=== PATIENT | male | born 1950 | race Caucasian/White ===

== ENCOUNTER 2017-05-30 10:58 | Inpatient (IN) | payer MEDICARE, BC ==
[2017-05-30] MEDS ORDERED: Sodium Chloride 0.9% 10 ML Syringe FLUSH PRN ×2 (11:03→14:25)
[2017-05-30] MEDS ORDERED: Midazolam 1 MG/ML 2 ML SDV IVPUSH ONE ×2 (11:19→12:21)
--- NOTE | 2017-05-30 11:34 | CR ---
Chest: Portable view of the chest was obtained. Moderate sized left sided pneumothorax is seen. Mild left basilar atelectasis is noted. Questionable nodule is noted within the left upper chest which can be reevaluated after lung is expanded. Right lung is clear. Heart size is normal. Tortuous thoracic aorta is seen. Impression: 1. Moderate sized left-sided pneumothorax. 2. Questionable nodule within the left upper lung. This can be further evaluated once pneumothorax is evacuated. 3. Other incidental findings. Diagnostic code #5
[2017-05-30] MEDS ORDERED: Midazolam 1 MG/ML 2 ML SDV ONE (12:00)
[2017-05-30] MEDS ORDERED: fentaNYL 100 MCG/2 ML SDV ONE (12:01)
[2017-05-30] MEDS ORDERED: fentaNYL 100 MCG/2 ML SDV IVPUSH ONE (12:20)
[2017-05-30] MEDS ORDERED: Lidocaine 1% 50 ML MDV ONE (12:30)
--- NOTE | 2017-05-30 12:37 | EDM.PDOC ---
ED HPI GENERAL MEDICAL PROBLEM - General Chief Complaint: Respiratory Problem Stated Complaint: [facility] Time Seen by Provider: 05/30/17 11:02 Source of Information: Reports: Patient, EMS History Limitations: Reports: No Limitations - History of Present Illness INITIAL COMMENTS - FREE TEXT/NARRATIVE: The patient presents with a 25% pneumothorax to the left chest. The patient has a history of asthma and his manager customs Dr Buchanan found a spot on his lung. A PET scan was done and the spot lit up. He had a biopsy done on Friday. This was done at [facility] in [place] and he had some pain after and they did an x-ray that did not show a pneumothorax and he was toradol. He got better and went home. He developed shortness of breath over the past couple days and he he had some chest pain. He went to the clinic in [place] and they did a chest x-ray and he had a >25% pneumo to the left lung. He was sent here by ambulance. He has shortness of breath and chest pain here. He is tachypnic. Onset: Gradual Duration: Day(s): Location: Reports: Chest Quality: Reports: Sharp Severity: Moderate Improves with: Reports: None Worsens with: Reports: Movement Context: Reports: Other (Post biopsy) Associated Symptoms: Reports: Chest Pain, Shortness of Breath. Denies: Cough, Fever/Chills, Nausea/Vomiting - Related Data Allergies Allergy/AdvReac Type Severity Reaction Status Date / Time ciprofloxacin [From Cipro] Allergy Hives Verified 05/30/17 11:10 Home Meds: Home Meds Albuterol [Proair HFA] 2 puff INH Q4HR PRN 03/24/14 [History] Albuterol [Ventolin HFA] 1 puff INH QID PRN 03/24/14 [History] Fexofenadine [Elodia] 180 mg PO DAILY 03/25/14 [History] Hydrocodone/Acetaminophen [Hydrocodone-Acetaminophen 5-325] 1 each PO Q4H PRN [History] predniSONE [Prednisone] 20 mg PO ASDIRECTED 03/25/14 [History] Aspirin 81 mg PO DAILY 05/30/17 [History] Bifidobacterium Infantis [Align] 4 mg PO DAILY PRN 05/30/17 [History] Budesonide [Pulmicort] 0.5 mg IH BID 05/30/17 [History] Budesonide/Formoterol [Symbicort 160-4.5 MCG] 2 puff INH BID 05/30/17 [History] Calcium Carbonate [Calcium] 1 tab PO DAILY 05/30/17 [History] Guaifenesin/Pseudoephedrne HCl [Mucinex D ER Tablet] 1 each PO DAILY 05/30/17 [ History] Methylcellulose (with Sugar) [Citrucel] 1 dose PO ASDIRECTED PRN 05/30/17 [ History] Omeprazole 40 mg PO DAILY PRN 05/30/17 [History] Ranitidine [Zantac] 300 mg PO BID 05/30/17 [History] Zolpidem [Ambien] 10 mg PO BEDTIME 05/30/17 [History] Past Medical History HEENT History: Reports: Cataract, Impaired Vision Respiratory History: Reports: Asthma, PE, Other (See Below) Other Respiratory History: PET scan positive for cancer, collapsed lung 05/2017 Gastrointestinal History: Reports: GERD Genitourinary History: Reports: Prostate Disorder, Renal Disease, Other (See Below) Other Genitourinary History: stents placed to kidney ureter Endocrine/Metabolic History: Reports: Other (See Below) Other Endocrine/Metabolic History: lymph node removal with prostate cancer Hematologic History: Reports: Anemia Oncologic (Cancer) History: Reports: Prostate, Other (See Below) Other Oncologic History: r/o currently for lung cancer - Past Surgical History HEENT Surgical History: Reports: Tonsillectomy Respiratory Surgical History: Reports: Lung Biopsies GI Surgical History: Reports: Other (See Below) Other GI Surgeries/Procedures: bowel resection Male Surgical History: Reports: Prostate Biopsy Musculoskeletal Surgical History: Reports: Other (See Below) Other Musculoskeletal Surgeries/Procedures:: broken foot/ankle Social & Family History - Family History Family Medical History: Noncontributory - Tobacco Use Smoking Status *Q: Former Smoker Years of Tobacco use: 30 Used Tobacco, but Quit: No Second Hand Smoke Exposure: No - Caffeine Use Caffeine Use: Reports: Coffee - Alcohol Use Days Per Week of Alcohol Use: 0 - Recreational Drug Use Recreational Drug Use: No ED ROS GENERAL - Review of Systems Review Of Systems: See Below Constitutional: Reports: No Symptoms HEENT: Reports: No Symptoms Respiratory: Reports: Shortness of Breath Cardiovascular: Reports: Chest Pain Endocrine: Reports: No Symptoms GI/Abdominal: Reports: No Symptoms : Reports: No Symptoms Musculoskeletal: Reports: No Symptoms Skin: Reports: No Symptoms ED EXAM, GENERAL - Physical Exam Exam: See Below Exam Limited By: No Limitations General Appearance: Alert, No Apparent Distress Ears: Normal External Exam Nose: Normal Inspection Head: Atraumatic, Normocephalic Neck: Normal Inspection Respiratory/Chest: Respiratory Distress (Mild), Decreased Breath Sounds (on the left) Cardiovascular: Regular Rate, Rhythm, No Edema, No Murmur GI/Abdominal: Soft, Non-Tender, No Organomegaly, No Mass Rectal (Males) Exam: Normal Exam Back Exam: Normal Inspection Extremities: Normal Inspection Neurological: Alert, Oriented, No Motor/Sensory Deficits ED RESPIRATORY PROCEDURES - Chest Tube Insertion Chest Tube Location: Left Site: Mid Axillary Line, Intercostal Space: Tube Size: 20Fr Skin Prep: CDC Guidelines Followed, Chlorhexidine Local Anesthesia - Lidocaine (Xylocaine): 1% Plain Local Anesthetic Volume: 5cc Gonsalez of Air Towner: Yes Number of Attempts: 1 Tube Sutured to Skin: Yes Post procedure tube position confirmed by: by CXR, by Provider Tube Connected to Suction: Yes Course - Vital Signs Last Recorded V/S: Last Vital Signs Temp 98.4 F 05/30/17 11:04 Pulse 74 05/30/17 11:04 Resp 28 H 05/30/17 11:04 BP 131/82 05/30/17 11:04 Pulse Ox 98 05/30/17 11:04 - Orders/Labs/Meds Orders: Active Orders 24 hr Category Date Time Status Cardiac Monitoring [RC] . DIRECTED Care 05/30/17 11:03 Active Oxygen Therapy [RC] PRN Care 05/30/17 11:03 Active Peripheral IV Care [RC] . DIRECTED Care 05/30/17 11:03 Active Chest 1V Frontal [CR] Stat Exams 05/30/17 12:05 Taken Sodium Chloride 0.9% [Saline Flush] Med 05/30/17 11:03 Active 10 ml FLUSH ASDIRECTED PRN Peripheral IV Insertion Adult [OM.PC] Stat Oth 05/30/17 11:03 Ordered Medication Orders Sodium Chloride (Saline Flush) 10 ml FLUSH ASDIRECTED PRN PRN Reason: Keep Vein Open Last Admin: 05/30/17 11:41 Dose: 10 ml Labs: Laboratory Tests 05/30/17 05/30/17 Range/Units 11:15 11:15 WBC 6.88 (4.23-9.07) K/mm3 RBC 4.60 L (4.63-6.08) M/mm3 Hgb 13.6 L (13.7-17.5) gm/L Hct 42.1 (40.1-51.0) % MCV 91.5 (79.0-92.2) fl MCH 29.6 (25.7-32.2) pg MCHC 32.3 (32.2-35.5) g/dl RDW Std Deviation 47.5 H (35.1-43.9) fL Plt Count 237 (163-337) K/mm3 MPV 10.3 (9.4-12.3) fl Neut % (Auto) 61.7 (34.0-67.9) % Lymph % (Auto) 14.2 L (21.8-53.1) % [place] % (Auto) 7.3 (5.3-12.2) % Eos % (Auto) 16.3 H (0.8-7.0) Baso % (Auto) 0.4 (0.1-1.2) % Neut # (Auto) 4.24 (1.78-5.38) K/mm3 Lymph # (Auto) 0.98 L (1.32-3.57) K/mm3 [place] # (Auto) 0.50 (0.30-0.82) K/mm3 Eos # (Auto) 1.12 H (0.04-0.54) K/mm3 Baso # (Auto) 0.03 (0.01-0.08) K/mm3 Manual Slide Review Abnormal smear Sodium 140 (136-145) mEq/L Potassium 4.3 (3.5-5.1) mEq/L Chloride 105 (98-107) mEq/L Carbon Dioxide 29 (21-32) mEq/L Anion Gap 10.3 (5-15) BUN 13 (7-18) mg/dL Creatinine 1.0 (0.7-1.3) mg/dL Est Cr Clr Drug Dosing 60.84 mL/min Estimated GFR (MDRD) > 60 (>60) mL/min BUN/Creatinine Ratio 13.0 L (14-18) Glucose 94 (80-115) mg/dL Calcium 9.3 (8.5-10.1) mg/dL Total Bilirubin 0.4 (0.2-1.0) mg/dL AST 19 (15-37) U/L ALT 20 (16-63) U/L Alkaline Phosphatase 107 (46-116) U/L Total Protein 7.7 (6.4-8.2) g/dl Albumin 3.9 (3.4-5.0) g/dl Globulin 3.8 gm/dL Albumin/Globulin Ratio 1.0 (1-2) Meds: Medications Generic Name Dose Route Start Last Admin Trade Name Freq PRN Reason Stop Dose Admin Sodium Chloride 10 ml 05/30/17 11:03 05/30/17 11:41 Saline Flush FLUSH 10 ml ASDIRECTED PRN Administration Keep Vein Open Discontinued Medications Generic Name Dose Route Start Last Admin Trade Name Freq PRN Reason Stop Dose Admin Fentanyl Confirm 05/30/17 12:01 05/30/17 12:26 Sublimaze Administered 05/30/17 12:02 Not Given Dose 100 mcg .ROUTE .STK-MED ONE Fentanyl 50 mcg 05/30/17 12:20 05/30/17 12:24 Sublimaze IVPUSH 05/30/17 12:21 50 mcg ONETIME ONE Administration Midazolam HCl 2 mg 05/30/17 11:19 05/30/17 11:41 Versed 1 Mg/Ml IVPUSH 05/30/17 11:20 2 mg ONETIME ONE Administration Midazolam HCl Confirm 05/30/17 12:00 05/30/17 12:27 Versed 1 Mg/Ml Administered 05/30/17 12:01 Not Given Dose 2 mg .ROUTE .STK-MED ONE Midazolam HCl 2 mg 05/30/17 12:21 05/30/17 12:26 Versed 1 Mg/Ml IVPUSH 05/30/17 12:22 2 mg ONETIME ONE Administration - Re-Assessments/Exams Free Text/Narrative Re-Assessment/Exam: 05/30/17 12:43 I ordered oxygen, IV saline lock, CXR, labs and versed 2mg IV. I called Dr Ross and he recommended a 20 [place] tube. I put that size tube in and had a large gonsalez of air. The tube went to the lower part of the lung and not the the upper part where I wanted it but it is doing the job. Dr Ross accepted the patient. Departure - Departure Time of Disposition: 13:00 Disposition: Admitted As Inpatient 67 Condition: Good Clinical Impression: Pneumothorax after biopsy - Discharge Information Forms: ED Department Discharge - My Orders Last 24 Hours: My Active Orders 05/30/17 11:03 Cardiac Monitoring [RC] . DIRECTED Oxygen Therapy [RC] PRN Peripheral IV Care [RC] . DIRECTED Sodium Chloride 0.9% [Saline Flush] 10 ml FLUSH ASDIRECTED PRN Peripheral IV Insertion Adult [OM.PC] Stat 05/30/17 12:05 Chest 1V Frontal [CR] Stat - Assessment/Plan Last 24 Hours: My Active Orders 05/30/17 11:03 Cardiac Monitoring [RC] . DIRECTED Oxygen Therapy [RC] PRN Peripheral IV Care [RC] . DIRECTED Sodium Chloride 0.9% [Saline Flush] 10 ml FLUSH ASDIRECTED PRN Peripheral IV Insertion Adult [OM.PC] Stat 05/30/17 12:05 Chest 1V Frontal [CR] Stat
--- NOTE | 2017-05-30 12:47 | CR ---
Chest: Portable view of the chest was obtained. Comparison: Previous chest x-ray performed on the same day (10:58 AM). Left basilar chest tube is seen. Minimal apical pneumothorax remains within the left lung apex but pneumothorax has otherwise been evacuated. Slight areas of atelectasis are felt to be present within the left chest. No discrete nodule identified as suggested on prior chest x-ray. Right lung is clear. Small to moderate-sized hiatal hernia is seen. Tortuous thoracic aorta is noted. Heart size is not enlarged. Small amount of air is noted within the left chest wall. Impression: 1. Left basilar chest tube. Minimal apical pneumothorax remains on the left side. 2. Other incidental findings. Diagnostic code #2
[2017-05-30] MEDS ORDERED: Acetaminophen/oxyCODONE 325-5 MG Tab PO PRN (14:01)
[2017-05-30] MEDS ORDERED: Non-Formulary Medication 1 Each (Albuterol 1 PUFF) INH PRN (14:26)
[2017-05-30] MEDS ORDERED: Bifidobacterium Infantis [Align] 4 MG PO PRN (14:26)
--- NOTE | 2017-05-30 14:35 | PCM.HP ---
H&P History of Present Illness - General Date of Service: 05/30/17 Admit Problem/Dx: Admission Diagnosis/Problem Admission Diagnosis/Problem Pneumothorax Source of Information: Patient, Provider History Limitations: Reports: No Limitations - History of Present Illness Initial Comments - Free Text/Narative: 67-year-old patient with COPD underwent a left lung imaging guided biopsy for a pulmonary nodule about 48 hours ago. After the lung biopsy he noticed progressive shortness of breath. Ultimately he went to his local emergency room today where a chest x-ray was performed and was remarkable for a left-sided pneumothorax of about 25%. He was accepted in transfer from the ED to our ED where he was seen by staff. A chest tube was placed by ED staff in the left hemithorax. There was a gonsalez of air upon entry into the chest. The patient's symptoms of shortness of breath were improved. A basilar chest tube was inserted. He was placed on suction and transferred to the floor for my chest tube management. Currently he complains of left chest tube entry site pain. - Related Data Allergies/Adverse Reactions: Allergies Allergy/AdvReac Type Severity Reaction Status Date / Time ciprofloxacin [From Cipro] Allergy Hives Verified 05/30/17 11:10 Home Medications: Home Meds Albuterol [Proair HFA] 2 puff INH Q4HR PRN 03/24/14 [History] Albuterol [Ventolin HFA] 1 puff INH QID PRN 03/24/14 [History] Fexofenadine [Elodia] 180 mg PO DAILY 03/25/14 [History] Hydrocodone/Acetaminophen [Hydrocodone-Acetaminophen 5-325] 1 each PO Q4H PRN [History] predniSONE [Prednisone] 20 mg PO ASDIRECTED 03/25/14 [History] Aspirin 81 mg PO DAILY 05/30/17 [History] Bifidobacterium Infantis [Align] 4 mg PO DAILY PRN 05/30/17 [History] Budesonide [Pulmicort] 0.5 mg IH BID 05/30/17 [History] Budesonide/Formoterol [Symbicort 160-4.5 MCG] 2 puff INH BID 05/30/17 [History] Calcium Carbonate [Calcium] 1 tab PO DAILY 05/30/17 [History] Guaifenesin/Pseudoephedrne HCl [Mucinex D ER Tablet] 1 each PO DAILY 05/30/17 [ History] Methylcellulose (with Sugar) [Citrucel] 1 dose PO ASDIRECTED PRN 05/30/17 [ History] Omeprazole 40 mg PO DAILY PRN 05/30/17 [History] Ranitidine [Zantac] 300 mg PO BID 05/30/17 [History] Zolpidem [Ambien] 10 mg PO BEDTIME 05/30/17 [History] Past Medical History HEENT History: Reports: Cataract, Impaired Vision Respiratory History: Reports: Asthma, PE, Other (See Below) Other Respiratory History: PET scan positive for cancer, collapsed lung 05/2017 Gastrointestinal History: Reports: GERD Genitourinary History: Reports: Prostate Disorder, Renal Disease, Other (See Below) Other Genitourinary History: stents placed to kidney ureter Endocrine/Metabolic History: Reports: Other (See Below) Other Endocrine/Metabolic History: lymph node removal with prostate cancer Hematologic History: Reports: Anemia Oncologic (Cancer) History: Reports: Prostate, Other (See Below) Other Oncologic History: r/o currently for lung cancer - Past Surgical History HEENT Surgical History: Reports: Tonsillectomy Respiratory Surgical History: Reports: Lung Biopsies GI Surgical History: Reports: Other (See Below) Other GI Surgeries/Procedures: bowel resection Male Surgical History: Reports: Prostate Biopsy Musculoskeletal Surgical History: Reports: Other (See Below) Other Musculoskeletal Surgeries/Procedures:: broken foot/ankle Social & Family History - Family History Family Medical History: Noncontributory - Tobacco Use Smoking Status *Q: Former Smoker Years of Tobacco use: 30 Used Tobacco, but Quit: No Second Hand Smoke Exposure: No - Caffeine Use Caffeine Use: Reports: Coffee - Alcohol Use Days Per Week of Alcohol Use: 0 - Recreational Drug Use Recreational Drug Use: No H&P Review of Systems - Review of Systems: Review Of Systems: ROS reveals no pertinent complaints other than HPI. Exam - Exam Exam: See Below - Vital Signs Vital Signs: Last Vital Signs Temp 36.9 C 05/30/17 11:04 Pulse 74 05/30/17 11:04 Resp 28 H 05/30/17 11:04 BP 131/82 05/30/17 11:04 Pulse Ox 98 05/30/17 11:04 Weight: 64.864 kg - Exam Quality Assessment: Supplemental Oxygen General: Alert, Oriented, Other (Anxious) Neck: Supple Lungs: Other (Increased AP diameter. Microfoam tape securing the chest tube in place. The dressing is dry and intact.) Cardiovascular: Regular Rate, Regular Rhythm GI/Abdominal Exam: Soft, Non-Tender (Male) Exam: Deferred Rectal (Males) Exam: Deferred Back Exam: Full Range of Motion Extremities: Normal Inspection Skin: Warm Neuro Extensive - Mental Status: Alert, Normal Mood/Affect, Normal Cognition Psychiatric: Alert, Normal Affect - Patient Data Result Diagrams: 05/30/17 11:15 05/30/17 11:15 *Q Meaningful Use (ADM) - VTE *Q VTE Criteria *Q: - Stroke *Q Stroke Criteria *Q: - AMI *Q AMI Criteria *Q: - Problem List (1) Pneumothorax after biopsy SNOMED Code(s): 21899148, 56595186 ICD Code: J95.811 - POSTPROCEDURAL PNEUMOTHORAX Status: Resolved Priority : Medium Current Visit: Yes Problem List Initiated/Reviewed/Updated: Yes Orders Last 24hrs: Active Orders 24 hr Category Date Time Status Patient Status [ADT] Routine ADT 05/30/17 14:24 Active Bedrest Bathroom Privileges [RC] ASDIRECTED Care 05/30/17 14:16 Active Regular Diet [DIET] Diet 05/30/17 Dinner Active Chest 1V Frontal [CR] Routine Exams 05/31/17 07:00 Ordered Acetaminophen/HYDROcodone [[place] 325-5 MG] Med 05/30/17 14:26 Ordered 1 each PO Q4H PRN Acetaminophen/oxyCODONE [Percocet 325-5 MG] Med 05/30/17 14:01 Active 1 - 2 tab PO Q6H PRN Albuterol Med 05/30/17 14:26 Ordered 1 puff INH QID PRN Albuterol [Proventil HFA] Med 05/30/17 14:26 Ordered 2 puff INH Q4HR PRN Aspirin Med 05/31/17 09:00 Ordered 81 mg PO DAILY Bifidobacterium Infantis [Align] Med 05/30/17 14:26 Ordered 4 mg PO DAILY PRN Budesonide [Pulmicort] Med 05/30/17 21:00 Ordered 0.5 mg NEB BID Budesonide/Formoterol [Symbicort 160-4.5 MCG] Med 05/30/17 21:00 Ordered 2 puff INH BID Calcium Carbonate [Calcium] Med 05/31/17 09:00 Ordered 1 tab PO DAILY Fexofenadine Med 05/31/17 09:00 Ordered 180 mg PO DAILY Guaifenesin/Pseudoephedrne HCl Med 05/31/17 09:00 Ordered 1 each PO DAILY Ketorolac [Toradol] Med 05/30/17 14:25 Ordered 30 mg IVPUSH Q6H PRN Omeprazole Med 05/30/17 14:26 Ordered 40 mg PO DAILY PRN Sodium Chloride 0.9% [Saline Flush] Med 05/30/17 14:25 Ordered 10 ml FLUSH ASDIRECTED PRN Zolpidem [Ambien] Med 05/30/17 21:00 Ordered 10 mg PO BEDTIME Convert IV to Saline Lock [OM.PC] Routine Oth 05/30/17 14:25 Ordered Resuscitation Status Routine Resus Stat 05/30/17 14:17 Ordered Medication Orders Oxycodone/Acetaminophen (Percocet 325-5 Mg) 1 - 2 tab PO Q6H PRN PRN Reason: Pain (moderate 4-6) Last Admin: 05/30/17 14:14 Dose: 2 tab Sodium Chloride (Saline Flush) 10 ml FLUSH ASDIRECTED PRN PRN Reason: Keep Vein Open Last Admin: 05/30/17 11:41 Dose: 10 ml Assessment/Plan Comment:: imp: Left-sided iatrogenic pneumothorax status post radiologic biopsy of a suspicious pulmonary nodule. Status post left ED tube thoracostomy with re expansion of the left lung. The waterseal unit has no air leak but there is significant respiratory variation. plan: 20 cm of suction to keep the lung expanded. Serial chest x-rays. COPD and pain management.
[2017-05-30] MEDS: Ketorolac 30 MG/ML SDV IVPUSH PRN ×2 (15:13→20:49)
[2017-05-30] MEDS: Pantoprazole 40 MG Tab.CR PO PRN (15:15)
[2017-05-30] MEDS: Zolpidem 10 MG Tab PO SCH (20:49)
[2017-05-30] MEDS: Benzonatate 100 MG Cap PO PRN (22:04)
[2017-05-30] MEDS: Acetaminophen/HYDROcodone 325-5 MG Tab PO PRN (22:09)
[2017-05-30] MEDS: Budesonide 0.5 MG/2 ML Neb Susp NEB SCH (22:50)
[2017-05-30] MEDS: Formoterol/Mometasone 200-5 MCG 8.8 GM Inhaler IH SCH (22:50)
[2017-05-30] MEDS: Albuterol 6.7 GM Inhaler INH PRN (22:54)
[2017-05-31] MEDS: Ketorolac 30 MG/ML SDV IVPUSH PRN ×2 (05:52→21:39)
[2017-05-31] MEDS: Benzonatate 100 MG Cap PO PRN ×2 (05:52→17:51)
[2017-05-31] MEDS: Budesonide 0.5 MG/2 ML Neb Susp NEB SCH ×2 (08:40→20:01)
[2017-05-31] MEDS: Formoterol/Mometasone 200-5 MCG 8.8 GM Inhaler IH SCH ×2 (08:40→20:01)
[2017-05-31] MEDS: Albuterol 6.7 GM Inhaler INH PRN ×2 (08:40→20:01)
[2017-05-31] MEDS: Aspirin 81 MG Tab.Chew PO SCH (08:49)
[2017-05-31] MEDS: Loratadine 10 MG Tab PO SCH (08:51)
[2017-05-31] MEDS: Acetaminophen/HYDROcodone 325-5 MG Tab PO PRN ×2 (08:52→17:50)
[2017-05-31] MEDS: Pseudoephedrine 30 MG Tab PO SCH (08:52)
[2017-05-31] MEDS: guaiFENesin 600 MG Tab.ER PO SCH (08:52)
[2017-05-31] MEDS ORDERED: Calcium Carbonate 600 MG Tab PO SCH (09:00)
--- NOTE | 2017-05-31 09:21 | PCM.PN ---
- General Info Date of Service: 05/31/17 Functional Status: Reports: Pain Controlled - Review of Systems Pulmonary: Reports: Cough (Patient has a known chronic cough. He takes Tessalon pearls at home. This was given here and relieved his cough area) - Patient Data Vitals - Most Recent: Last Vital Signs Temp 36.3 C 05/31/17 03:00 Pulse 67 05/31/17 03:00 Resp 18 05/31/17 03:00 BP 120/76 05/31/17 03:00 Pulse Ox 97 05/31/17 08:40 Weight - Most Recent: 66.134 kg I&O - Last 24 Hours: Intake & Output 05/30/17 05/31/17 05/31/17 22:59 06:59 14:59 Intake Total 760 1200 Output Total 100 500 Balance 660 700 Med Orders - Current: Current Medications Hydrocodone Bitart/Acetaminophen ([place] 325-5 Mg) 1 tab PO Q4H PRN PRN Reason: Pain Last Admin: 05/31/17 08:52 Dose: 1 tab Albuterol (Proventil Hfa) 0 gm INH Q4H PRN PRN Reason: Shortness of Breath Last Admin: 05/31/17 08:40 Dose: 2 puff Aspirin (Aspirin) 81 mg PO DAILY [facility] Last Admin: 05/31/17 08:49 Dose: 81 mg Benzonatate (Tessalon Perles) 100 mg PO TID PRN PRN Reason: COUGH Last Admin: 05/31/17 05:52 Dose: 100 mg Budesonide (Pulmicort) 0.5 mg NEB BID [facility] Last Admin: 05/31/17 08:40 Dose: 0.5 mg Calcium Carbonate/Glycine (Calcium Carbonate) 1 mg PO DAILY [facility] Last Admin: 05/31/17 08:50 Dose: 600 mg Guaifenesin (Mucinex) 600 mg PO DAILY [facility] Last Admin: 05/31/17 08:52 Dose: 600 mg Ketorolac Tromethamine (Toradol) 30 mg IVPUSH Q6H PRN PRN Reason: Pain Last Admin: 05/31/17 05:52 Dose: 30 mg Loratadine (Claritin) 10 mg PO DAILY [facility] Last Admin: 05/31/17 08:51 Dose: 10 mg Mometasone Furoate/Formoterol Fumar (Dulera 200-5 Mcg) 0 puff IH BID [facility] Last Admin: 05/31/17 08:40 Dose: 2 puff Oxycodone/Acetaminophen (Percocet 325-5 Mg) 1 - 2 tab PO Q6H PRN PRN Reason: Pain (moderate 4-6) Last Admin: 05/30/17 14:14 Dose: 2 tab Pantoprazole Sodium (Protonix) 40 mg PO DAILY PRN PRN Reason: Heartburn Last Admin: 05/30/17 15:15 Dose: 40 mg Bifidobacterium Infantis [Align] 4 Mg 0 each PO DAILY PRN PRN Reason: GI upset Pseudoephedrine HCl (Sudogest) 120 mg PO DAILY [facility] Last Admin: 05/31/17 08:52 Dose: 120 mg Sodium Chloride (Saline Flush) 10 ml FLUSH ASDIRECTED PRN PRN Reason: Keep Vein Open Last Admin: 05/30/17 11:41 Dose: 10 ml Sodium Chloride (Saline Flush) 10 ml FLUSH ASDIRECTED PRN PRN Reason: Keep Vein Open Zolpidem Tartrate (Ambien) 10 mg PO BEDTIME [facility] Last Admin: 05/30/17 20:49 Dose: 10 mg Discontinued Medications Fentanyl (Sublimaze) Confirm Administered Dose 100 mcg .ROUTE .STK-MED ONE Stop: 05/30/17 12:02 Last Admin: 05/30/17 12:26 Dose: Not Given Fentanyl (Sublimaze) 50 mcg IVPUSH ONETIME ONE Stop: 05/30/17 12:21 Last Admin: 05/30/17 12:24 Dose: 50 mcg Midazolam HCl (Versed 1 Mg/Ml) 2 mg IVPUSH ONETIME ONE Stop: 05/30/17 11:20 Last Admin: 05/30/17 11:41 Dose: 2 mg Midazolam HCl (Versed 1 Mg/Ml) Confirm Administered Dose 2 mg .ROUTE .STK-MED ONE Stop: 05/30/17 12:01 Last Admin: 05/30/17 12:27 Dose: Not Given Midazolam HCl (Versed 1 Mg/Ml) 2 mg IVPUSH ONETIME ONE Stop: 05/30/17 12:22 Last Admin: 05/30/17 12:26 Dose: 2 mg Non-Formulary Medication (Albuterol) 1 puff INH QID PRN PRN Reason: Shortness of Breath - Exam Lungs: Normal Respiratory Effort, Other (Some respiratory variation in the collection unit. No air leak through the water seal.) - Problem List & Annotations (1) Pneumothorax after biopsy SNOMED Code(s): 98191932, 92743215 Code(s): J95.811 - POSTPROCEDURAL PNEUMOTHORAX Status: Resolved Priority : Medium Current Visit: Yes - Problem List Review Problem List Initiated/Reviewed/Updated: Yes - My Orders Last 24 Hours: My Active Orders 05/30/17 13:55 Chest Tube Management [RC] ASDIRECTED 05/30/17 14:25 Ketorolac [Toradol] 30 mg IVPUSH Q6H PRN Sodium Chloride 0.9% [Saline Flush] 10 ml FLUSH ASDIRECTED PRN Convert IV to Saline Lock [OM.PC] Routine 05/30/17 14:26 Acetaminophen/HYDROcodone [[place] 325-5 MG] 1 tab PO Q4H PRN Albuterol [Proventil HFA] 0 gm INH Q4H PRN Pantoprazole [ProTONIX] 40 mg PO DAILY PRN Patient's Own Medication [Ptom] 0 each PO DAILY PRN 05/30/17 17:05 Antiembolic Devices [RC] PER UNIT ROUTINE Antiembolic Hose [OM.PC] Routine 05/30/17 20:40 Benzonatate [Tessalon Perles] 100 mg PO TID PRN 05/30/17 21:00 Budesonide [Pulmicort] 0.5 mg NEB BID Mometasone/Formoterol [Dulera 200-5 MCG] 0 puff IH BID Zolpidem [Ambien] 10 mg PO BEDTIME 05/31/17 07:00 Chest 1V Frontal [CR] Routine 05/31/17 09:00 Aspirin 81 mg PO DAILY Calcium Carbonate 1 mg PO DAILY Loratadine [Claritin] 10 mg PO DAILY Pseudoephedrine [Sudogest] 120 mg PO DAILY guaiFENesin [Mucinex] 600 mg PO DAILY Stable p.m. - Plan Plan:: We'll continue suction for for 48 hours. Waterseal tomorrow.
[2017-05-31] MEDS: Zolpidem 10 MG Tab PO SCH (21:39)
[2017-05-31] MEDS ORDERED: Magnesium Hydroxide 400 MG/5 ML Susp 30 ML Cup PO PRN (21:51)
[2017-06-01] MEDS: Ketorolac 30 MG/ML SDV IVPUSH PRN ×2 (06:17→20:06)
--- NOTE | 2017-06-01 08:24 | PCM.PN ---
- General Info Date of Service: 06/01/17 Functional Status: Reports: Pain Controlled, Tolerating Diet, Ambulating, Urinating - Review of Systems Pulmonary: Reports: No Symptoms - Patient Data Vitals - Most Recent: Last Vital Signs Temp 36.6 C 06/01/17 05:07 Pulse 74 06/01/17 05:07 Resp 18 06/01/17 05:07 BP 128/75 06/01/17 05:07 Pulse Ox 93 L 06/01/17 05:07 Weight - Most Recent: 67.222 kg I&O - Last 24 Hours: Intake & Output 05/31/17 06/01/17 06/01/17 22:59 06:59 14:59 Intake Total 1910 800 Output Total 231 1200 Balance 1679 -400 Med Orders - Current: Current Medications Hydrocodone Bitart/Acetaminophen ([place] 325-5 Mg) 1 tab PO Q4H PRN PRN Reason: Pain Last Admin: 05/31/17 17:50 Dose: 1 tab Albuterol (Proventil Hfa) 0 gm INH Q4H PRN PRN Reason: Shortness of Breath Last Admin: 05/31/17 20:01 Dose: 1 puff Aspirin (Aspirin) 81 mg PO DAILY [facility] Last Admin: 05/31/17 08:49 Dose: 81 mg Benzonatate (Tessalon Perles) 100 mg PO TID PRN PRN Reason: COUGH Last Admin: 05/31/17 17:51 Dose: 100 mg Budesonide (Pulmicort) 0.5 mg NEB BID [facility] Last Admin: 05/31/17 20:01 Dose: 0.5 mg Calcium Carbonate/Glycine (Calcium Carbonate) 600 mg PO DAILY [facility] Guaifenesin (Mucinex) 600 mg PO DAILY [facility] Last Admin: 05/31/17 08:52 Dose: 600 mg Ketorolac Tromethamine (Toradol) 30 mg IVPUSH Q6H PRN PRN Reason: Pain Last Admin: 06/01/17 06:17 Dose: 30 mg Loratadine (Claritin) 10 mg PO DAILY [facility] Last Admin: 05/31/17 08:51 Dose: 10 mg Magnesium Hydroxide (Milk Of Magnesia) 30 ml PO DAILY PRN PRN Reason: Constipation Last Admin: 05/31/17 22:05 Dose: 30 ml Mometasone Furoate/Formoterol Fumar (Dulera 200-5 Mcg) 0 puff IH BID [facility] Last Admin: 05/31/17 20:01 Dose: 1 puff Pantoprazole Sodium (Protonix) 40 mg PO DAILY PRN PRN Reason: Heartburn Last Admin: 05/30/17 15:15 Dose: 40 mg Bifidobacterium Infantis [Align] 4 Mg 0 each PO DAILY PRN PRN Reason: GI upset Pseudoephedrine HCl (Sudogest) 120 mg PO DAILY [facility] Last Admin: 05/31/17 08:52 Dose: 120 mg Sodium Chloride (Saline Flush) 10 ml FLUSH ASDIRECTED PRN PRN Reason: Keep Vein Open Last Admin: 05/30/17 11:41 Dose: 10 ml Sodium Chloride (Saline Flush) 10 ml FLUSH ASDIRECTED PRN PRN Reason: Keep Vein Open Zolpidem Tartrate (Ambien) 10 mg PO BEDTIME [facility] Last Admin: 05/31/17 21:39 Dose: 10 mg Discontinued Medications Calcium Carbonate/Glycine (Calcium Carbonate) 1 mg PO DAILY [facility] Last Admin: 05/31/17 08:50 Dose: 600 mg Fentanyl (Sublimaze) Confirm Administered Dose 100 mcg .ROUTE .STK-MED ONE Stop: 05/30/17 12:02 Last Admin: 05/30/17 12:26 Dose: Not Given Fentanyl (Sublimaze) 50 mcg IVPUSH ONETIME ONE Stop: 05/30/17 12:21 Last Admin: 05/30/17 12:24 Dose: 50 mcg Midazolam HCl (Versed 1 Mg/Ml) 2 mg IVPUSH ONETIME ONE Stop: 05/30/17 11:20 Last Admin: 05/30/17 11:41 Dose: 2 mg Midazolam HCl (Versed 1 Mg/Ml) Confirm Administered Dose 2 mg .ROUTE .STK-MED ONE Stop: 05/30/17 12:01 Last Admin: 05/30/17 12:27 Dose: Not Given Midazolam HCl (Versed 1 Mg/Ml) 2 mg IVPUSH ONETIME ONE Stop: 05/30/17 12:22 Last Admin: 05/30/17 12:26 Dose: 2 mg Non-Formulary Medication (Albuterol) 1 puff INH QID PRN PRN Reason: Shortness of Breath Oxycodone/Acetaminophen (Percocet 325-5 Mg) 1 - 2 tab PO Q6H PRN PRN Reason: Pain (moderate 4-6) Last Admin: 05/30/17 14:14 Dose: 2 tab - Exam Lungs: Other (Subcutaneous air) - Problem List & Annotations (1) Pneumothorax after biopsy SNOMED Code(s): 20375731, 88205055 Code(s): J95.811 - POSTPROCEDURAL PNEUMOTHORAX Status: Resolved Priority : Medium Current Visit: Yes - Problem List Review Problem List Initiated/Reviewed/Updated: Yes - My Orders Last 24 Hours: My Active Orders 05/31/17 09:00 Aspirin 81 mg PO DAILY Loratadine [Claritin] 10 mg PO DAILY Pseudoephedrine [Sudogest] 120 mg PO DAILY guaiFENesin [Mucinex] 600 mg PO DAILY 05/31/17 21:51 Magnesium Hydroxide [Milk of Magnesia] 30 ml PO DAILY PRN 06/01/17 09:00 Calcium Carbonate 600 mg PO DAILY - Assessment Assessment:: No air leak or respiratory variation in the collection unit - Plan Plan:: Waterseal today. Chest x-ray in the morning. Will follow the subcutaneous air as it's very minor.
[2017-06-01] MEDS: Formoterol/Mometasone 200-5 MCG 8.8 GM Inhaler IH SCH ×2 (08:26→20:12)
[2017-06-01] MEDS: Budesonide 0.5 MG/2 ML Neb Susp NEB SCH ×2 (08:26→20:12)
[2017-06-01] MEDS: Albuterol 6.7 GM Inhaler INH PRN ×2 (08:26→20:12)
[2017-06-01] MEDS ORDERED: Ondansetron 4 MG/2 ML SDV IVPUSH PRN (09:18)
[2017-06-01] MEDS: Aspirin 81 MG Tab.Chew PO SCH (10:37)
[2017-06-01] MEDS: Calcium Carbonate 600 MG Tab PO SCH (10:38)
[2017-06-01] MEDS: Loratadine 10 MG Tab PO SCH (10:38)
[2017-06-01] MEDS: guaiFENesin 600 MG Tab.ER PO SCH (10:40)
[2017-06-01] MEDS: Pseudoephedrine 30 MG Tab PO SCH (10:40)
[2017-06-01] MEDS: Acetaminophen/HYDROcodone 325-5 MG Tab PO PRN ×2 (12:21→23:44)
[2017-06-01] MEDS: Pantoprazole 40 MG Tab.CR PO PRN (14:19)
[2017-06-01] MEDS: Benzonatate 100 MG Cap PO PRN (20:06)
[2017-06-01] MEDS: Zolpidem 10 MG Tab PO SCH (20:06)
[2017-06-01] MEDS ORDERED: Aluminum Hydroxide/Magnesium Hydroxide/Simethicone Susp 30 ML Cup PO PRN (20:11)
[2017-06-02] MEDS: Benzonatate 100 MG Cap PO PRN ×2 (02:56→12:13)
[2017-06-02] MEDS: Acetaminophen/HYDROcodone 325-5 MG Tab PO PRN ×2 (05:41→12:12)
[2017-06-02] MEDS: Albuterol 6.7 GM Inhaler INH PRN (08:38)
[2017-06-02] MEDS: Formoterol/Mometasone 200-5 MCG 8.8 GM Inhaler IH SCH (08:39)
[2017-06-02] MEDS: Budesonide 0.5 MG/2 ML Neb Susp NEB SCH (08:39)
--- NOTE | 2017-06-02 08:57 | CR ---
Chest: Portable view of the chest was obtained. Comparison: Previous chest x-ray of 05/31/17. Subcutaneous air is noted within the left chest and left neck base. This has slightly diminished from prior exam. Left basilar chest tube remains. Very minimal apical pneumothorax is felt to remain. Lungs are clear with no acute infiltrates. Heart size is normal. Tortuous thoracic aorta is seen. Impression: 1. Left basilar chest tube. 2. Minimal left apical pneumothorax is felt to remain. 3. Slight decrease subcutaneous air within the left chest. Diagnostic code #2
--- NOTE | 2017-06-02 08:59 | CR ---
Chest: Frontal view of the chest was obtained. Comparison: Previous chest x-ray of 05/30/17. Left basilar chest tube is noted. Increased subcutaneous air is seen within the left chest wall from prior exam. Minimal apical pneumothorax remains. Lungs show slight atelectasis within the left base. Lungs otherwise are clear. Small hiatal hernia is seen. Heart size is normal. Tortuous thoracic aorta. Subcutaneous air extends into the left neck. Impression: 1. Extensive subcutaneous air within the left chest wall extending into the left neck. 2. Left basilar chest tube with small left apical pneumothorax remaining. 3. Other incidental findings. Diagnostic code #3 Agree with preliminary report issued by [facility] ([facility] preliminary report dictated on 05/31/17, 10:38 AM Central Time)
[2017-06-02] MEDS: Loratadine 10 MG Tab PO SCH (09:20)
[2017-06-02] MEDS: Calcium Carbonate 600 MG Tab PO SCH (09:20)
[2017-06-02] MEDS: Aspirin 81 MG Tab.Chew PO SCH (09:20)
[2017-06-02] MEDS: guaiFENesin 600 MG Tab.ER PO SCH (09:21)
[2017-06-02] MEDS: Pseudoephedrine 30 MG Tab PO SCH (09:21)
--- NOTE | 2017-06-02 09:31 | PCM.PN ---
- General Info Date of Service: 06/02/17 Admission Dx/Problem (Free Text): Iatrogenic left-sided pneumothorax - Review of Systems Pulmonary: Reports: No Symptoms - Patient Data Vitals - Most Recent: Last Vital Signs Temp 36.7 C 06/02/17 08:18 Pulse 74 06/02/17 08:18 Resp 12 06/02/17 08:18 BP 103/68 06/02/17 08:18 Pulse Ox 93 L 06/02/17 08:39 Weight - Most Recent: 67.358 kg I&O - Last 24 Hours: Intake & Output 06/01/17 06/02/17 06/02/17 22:59 06:59 14:59 Intake Total 1370 600 Output Total 7 Balance 1363 600 Med Orders - Current: Current Medications Hydrocodone Bitart/Acetaminophen ([place] 325-5 Mg) 1 tab PO Q4H PRN PRN Reason: Pain Last Admin: 06/02/17 05:41 Dose: 1 tab Al Hydroxide/Mg Hydroxide (Mag-Al Plus) 30 ml PO Q4H PRN PRN Reason: Heartburn Last Admin: 06/01/17 20:35 Dose: 30 ml Albuterol (Proventil Hfa) 0 gm INH Q4H PRN PRN Reason: Shortness of Breath Last Admin: 06/02/17 08:38 Dose: 2 puff Aspirin (Aspirin) 81 mg PO DAILY [facility] Last Admin: 06/02/17 09:20 Dose: 81 mg Benzonatate (Tessalon Perles) 100 mg PO TID PRN PRN Reason: COUGH Last Admin: 06/02/17 02:56 Dose: 100 mg Budesonide (Pulmicort) 0.5 mg NEB BID [facility] Last Admin: 06/02/17 08:39 Dose: 0.5 mg Calcium Carbonate/Glycine (Calcium Carbonate) 600 mg PO DAILY [facility] Last Admin: 06/02/17 09:20 Dose: 600 mg Guaifenesin (Mucinex) 600 mg PO DAILY [facility] Last Admin: 06/02/17 09:21 Dose: 600 mg Ketorolac Tromethamine (Toradol) 30 mg IVPUSH Q6H PRN PRN Reason: Pain Last Admin: 06/01/17 20:06 Dose: 30 mg Loratadine (Claritin) 10 mg PO DAILY [facility] Last Admin: 06/02/17 09:20 Dose: 10 mg Magnesium Hydroxide (Milk Of Magnesia) 30 ml PO DAILY PRN PRN Reason: Constipation Last Admin: 05/31/17 22:05 Dose: 30 ml Mometasone Furoate/Formoterol Fumar (Dulera 200-5 Mcg) 0 puff IH BID [facility] Last Admin: 06/02/17 08:39 Dose: 2 puff Ondansetron HCl (Zofran) 4 mg IVPUSH Q4HR PRN PRN Reason: Nausea/Vomiting Last Admin: 06/01/17 09:58 Dose: 4 mg Pantoprazole Sodium (Protonix) 40 mg PO DAILY PRN PRN Reason: Heartburn Last Admin: 06/01/17 14:19 Dose: 40 mg Bifidobacterium Infantis [Align] 4 Mg 0 each PO DAILY PRN PRN Reason: GI upset Pseudoephedrine HCl (Sudogest) 120 mg PO DAILY [facility] Last Admin: 06/02/17 09:21 Dose: 120 mg Sodium Chloride (Saline Flush) 10 ml FLUSH ASDIRECTED PRN PRN Reason: Keep Vein Open Last Admin: 05/30/17 11:41 Dose: 10 ml Sodium Chloride (Saline Flush) 10 ml FLUSH ASDIRECTED PRN PRN Reason: Keep Vein Open Zolpidem Tartrate (Ambien) 10 mg PO BEDTIME [facility] Last Admin: 06/01/17 20:06 Dose: 10 mg Discontinued Medications Calcium Carbonate/Glycine (Calcium Carbonate) 1 mg PO DAILY [facility] Last Admin: 05/31/17 08:50 Dose: 600 mg Fentanyl (Sublimaze) Confirm Administered Dose 100 mcg .ROUTE .STK-MED ONE Stop: 05/30/17 12:02 Last Admin: 05/30/17 12:26 Dose: Not Given Fentanyl (Sublimaze) 50 mcg IVPUSH ONETIME ONE Stop: 05/30/17 12:21 Last Admin: 05/30/17 12:24 Dose: 50 mcg Midazolam HCl (Versed 1 Mg/Ml) 2 mg IVPUSH ONETIME ONE Stop: 05/30/17 11:20 Last Admin: 05/30/17 11:41 Dose: 2 mg Midazolam HCl (Versed 1 Mg/Ml) Confirm Administered Dose 2 mg .ROUTE .STK-MED ONE Stop: 05/30/17 12:01 Last Admin: 05/30/17 12:27 Dose: Not Given Midazolam HCl (Versed 1 Mg/Ml) 2 mg IVPUSH ONETIME ONE Stop: 05/30/17 12:22 Last Admin: 05/30/17 12:26 Dose: 2 mg Non-Formulary Medication (Albuterol) 1 puff INH QID PRN PRN Reason: Shortness of Breath Oxycodone/Acetaminophen (Percocet 325-5 Mg) 1 - 2 tab PO Q6H PRN PRN Reason: Pain (moderate 4-6) Last Admin: 05/30/17 14:14 Dose: 2 tab - Exam Lungs: Other (Decrease crepitus) - Problem List & Annotations (1) Pneumothorax after biopsy SNOMED Code(s): 62497495, 32555190 Code(s): J95.811 - POSTPROCEDURAL PNEUMOTHORAX Status: Resolved Priority : Medium Current Visit: Yes - Problem List Review Problem List Initiated/Reviewed/Updated: Yes - My Orders Last 24 Hours: My Active Orders 06/01/17 09:00 Calcium Carbonate 600 mg PO DAILY 06/01/17 09:18 Ondansetron [Zofran] 4 mg IVPUSH Q4HR PRN 06/01/17 20:11 Alum Hydrox/Mag Hydrox/Simeth [Mag-Al Plus] 30 ml PO Q4H PRN 06/02/17 09:26 Communication Order [RC] ROUTINE 06/02/17 09:29 Ready for Discharge [RC] PER UNIT ROUTINE 06/02/17 16:00 Chest 1V Frontal [CR] Routine - Assessment Assessment:: No air leak or respiratory variation in the collection unit. Chest x-ray stable and improved since yesterday - Plan Plan:: Remove chest tube this morning. Follow-up chest x-ray in 6 hours. If the follow- up chest x-ray status post chest tube removal is stable then the patient can be discharged.
[2017-06-02 15:03] VITALS: BP 112/90
--- NOTE | 2017-06-02 16:27 | CR ---
Chest: Portable view of the chest was obtained. Comparison: Previous chest x-ray of 06/02/17 (7:13 AM). Left chest tube has been withdrawn. Subcutaneous air is noted within the left chest wall. Questionable small pneumothorax remains unchanged in size from previous exam. Lungs are clear. Small hiatal hernia is seen. Tortuous thoracic aorta is seen. Heart size is normal. Impression: 1. Left chest tube has been withdrawn. 2. Minimal apical pneumothorax is felt to remain and is unchanged in size from previous exam. 3. Other incidental findings. Diagnostic code #2
--- NOTE | 2017-06-03 09:48 | PCM.OPNOTE ---
- General Post-Op/Procedure Note Date of Surgery/Procedure: 06/02/17 Operative Procedure(s): Removal of left chest tube Findings: Indwelling left chest tube Pre Op Diagnosis: Iatrogenic pneumothorax treated with left tube thoracostomy Post-Op Diagnosis: Same Primary Surgeon: Seth Ross Pathology: None EBL in mLs: 0 Complications: None Condition: Good Free Text/Narrative:: Intake & Output 06/02/17 06/03/17 06/03/17 22:59 06:59 14:59 Intake Total 460 Output Total 600 Balance -140 After positioning the patient in the supine fashion I removed the tape previously placed. There were 2 sutures that I cut away from the skin. Once this was done and took a 4 x 4 gauze and placed it over the entry site of the chest tubes then pulled the tube from the left hemithorax with the patient in full inspiration. I then manually manipulated the tract to close it. I then placed a 4 x 4 gauze over the chest tube site and secured to the skin with 2 pieces of silk tape. There were no seizure occasions.
--- NOTE | 2017-06-12 07:02 | PCM.DCSUM1 ---
Discharge Summary - Hospital Course Free Text/Narrative:: The patient was admitted from the emergency room for chest tube management after he had previously undergone imaging guided biopsy of the left lung lesion. - Discharge Data Discharge Date: 06/03/17 Discharge Disposition: Home, Self-Care 01 Condition: Good - Discharge Diagnosis/Problem(s) (1) Pneumothorax after biopsy SNOMED Code(s): 64774810, 74030019 ICD Code: J95.811 - POSTPROCEDURAL PNEUMOTHORAX Status: Resolved Priority : Medium - Patient Summary/Data Operative Procedure(s) Performed: Removal of left chest tube Complications: None Recommended Follow-up Testing/Procedures: Chest x-ray in one week. Planned Operative Procedure(s) after DC: None Hospital Course: Patient was placed on suction for 48 hours then on waterseal for 48 hours. He had a small amount of subcutaneous air which resolved over the hospital course. With improving and stable chest x-rays and a stable clinical setting his chest tube was removed at the bedside without complication. He was sent home and asked to follow-up in one week. - Patient Instructions Diet: Usual Diet as Tolerated Activity: As Tolerated, Rest and Relax Today Driving: May Drive Today Showering/Bathing: May Shower (In 2 days. Leave dressing on for 2 days. Take dressing off before shower. Replace dressing with a Band-Aid after shower.) Notify Provider of: Increased Pain - Discharge Plan Home Medications: Home Meds Albuterol [Proair HFA] 2 puff INH Q4HR PRN 03/24/14 [History] Albuterol [Ventolin HFA] 1 puff INH QID PRN 03/24/14 [History] Fexofenadine [Elodia] 180 mg PO DAILY 03/25/14 [History] Hydrocodone/Acetaminophen [Hydrocodone-Acetaminophen 5-325] 1 each PO Q4H PRN [History] Aspirin 81 mg PO DAILY 05/30/17 [History] Bifidobacterium Infantis [Align] 4 mg PO DAILY PRN 05/30/17 [History] Budesonide [Pulmicort] 0.5 mg IH BID 05/30/17 [History] Budesonide/Formoterol [Symbicort 160-4.5 MCG] 2 puff INH BID 05/30/17 [History] Calcium Carbonate [Calcium] 1 tab PO DAILY 05/30/17 [History] Guaifenesin/Pseudoephedrne HCl [Mucinex D ER Tablet] 1 each PO DAILY 05/30/17 [ History] Methylcellulose (with Sugar) [Citrucel] 1 dose PO WEEKLY PRN 05/30/17 [History] Omeprazole 40 mg PO DAILY PRN 05/30/17 [History] Ranitidine [Zantac] 300 mg PO BID 05/30/17 [History] Zolpidem [Ambien] 10 mg PO BEDTIME PRN 05/30/17 [History] Forms: ED Department Discharge Referrals: PCP,None [Primary Care Provider] - Seth Ross MD [Physician] - 06/10/17 9:30 am (Follow up with Dr. Ross in one week for follow up chest x-ray. Appointment made for FridayJune 10 at 9:30 AM) - Discharge Summary/Plan Comment DC Time >30 min.: No Discharge Summary/Plan Comment: Follow-up in one week for chest x-ray in my office. - Patient Data Vitals - Most Recent: Last Vital Signs Temp 36.6 C 06/02/17 14:38 Pulse 71 06/02/17 14:39 Resp 14 06/02/17 14:38 BP 112/90 06/02/17 14:39 Pulse Ox 90 L 06/02/17 14:39 Weight - Most Recent: 67.358 kg Med Orders - Current: Current Medications Discontinued Medications Hydrocodone Bitart/Acetaminophen ([place] 325-5 Mg) 1 tab PO Q4H PRN PRN Reason: Pain Last Admin: 06/02/17 12:12 Dose: 1 tab Al Hydroxide/Mg Hydroxide (Mag-Al Plus) 30 ml PO Q4H PRN PRN Reason: Heartburn Last Admin: 06/01/17 20:35 Dose: 30 ml Albuterol (Proventil Hfa) 0 gm INH Q4H PRN PRN Reason: Shortness of Breath Last Admin: 06/02/17 08:38 Dose: 2 puff Aspirin (Aspirin) 81 mg PO DAILY [facility] Last Admin: 06/02/17 09:20 Dose: 81 mg Benzonatate (Tessalon Perles) 100 mg PO TID PRN PRN Reason: COUGH Last Admin: 06/02/17 12:13 Dose: 100 mg Budesonide (Pulmicort) 0.5 mg NEB BID [facility] Last Admin: 06/02/17 08:39 Dose: 0.5 mg Calcium Carbonate/Glycine (Calcium Carbonate) 1 mg PO DAILY [facility] Last Admin: 05/31/17 08:50 Dose: 600 mg Calcium Carbonate/Glycine (Calcium Carbonate) 600 mg PO DAILY [facility] Last Admin: 06/02/17 09:20 Dose: 600 mg Fentanyl (Sublimaze) Confirm Administered Dose 100 mcg .ROUTE .STK-MED ONE Stop: 05/30/17 12:02 Last Admin: 05/30/17 12:26 Dose: Not Given Fentanyl (Sublimaze) 50 mcg IVPUSH ONETIME ONE Stop: 05/30/17 12:21 Last Admin: 05/30/17 12:24 Dose: 50 mcg Guaifenesin (Mucinex) 600 mg PO DAILY [facility] Last Admin: 06/02/17 09:21 Dose: 600 mg Ketorolac Tromethamine (Toradol) 30 mg IVPUSH Q6H PRN PRN Reason: Pain Last Admin: 06/01/17 20:06 Dose: 30 mg Lidocaine HCl (Xylocaine 1%) 50 ml .ROUTE .STK-MED ONE Stop: 05/30/17 12:31 Loratadine (Claritin) 10 mg PO DAILY [facility] Last Admin: 06/02/17 09:20 Dose: 10 mg Magnesium Hydroxide (Milk Of Magnesia) 30 ml PO DAILY PRN PRN Reason: Constipation Last Admin: 05/31/17 22:05 Dose: 30 ml Midazolam HCl (Versed 1 Mg/Ml) 2 mg IVPUSH ONETIME ONE Stop: 05/30/17 11:20 Last Admin: 05/30/17 11:41 Dose: 2 mg Midazolam HCl (Versed 1 Mg/Ml) Confirm Administered Dose 2 mg .ROUTE .STK-MED ONE Stop: 05/30/17 12:01 Last Admin: 05/30/17 12:27 Dose: Not Given Midazolam HCl (Versed 1 Mg/Ml) 2 mg IVPUSH ONETIME ONE Stop: 05/30/17 12:22 Last Admin: 05/30/17 12:26 Dose: 2 mg Mometasone Furoate/Formoterol Fumar (Dulera 200-5 Mcg) 0 puff IH BID [facility] Last Admin: 06/02/17 08:39 Dose: 2 puff Non-Formulary Medication (Albuterol) 1 puff INH QID PRN PRN Reason: Shortness of Breath Ondansetron HCl (Zofran) 4 mg IVPUSH Q4HR PRN PRN Reason: Nausea/Vomiting Last Admin: 06/01/17 09:58 Dose: 4 mg Oxycodone/Acetaminophen (Percocet 325-5 Mg) 1 - 2 tab PO Q6H PRN PRN Reason: Pain (moderate 4-6) Last Admin: 05/30/17 14:14 Dose: 2 tab Pantoprazole Sodium (Protonix) 40 mg PO DAILY PRN PRN Reason: Heartburn Last Admin: 06/01/17 14:19 Dose: 40 mg Bifidobacterium Infantis [Align] 4 Mg 0 each PO DAILY PRN PRN Reason: GI upset Pseudoephedrine HCl (Sudogest) 120 mg PO DAILY [facility] Last Admin: 06/02/17 09:21 Dose: 120 mg Sodium Chloride (Saline Flush) 10 ml FLUSH ASDIRECTED PRN PRN Reason: Keep Vein Open Last Admin: 05/30/17 11:41 Dose: 10 ml Sodium Chloride (Saline Flush) 10 ml FLUSH ASDIRECTED PRN PRN Reason: Keep Vein Open Zolpidem Tartrate (Ambien) 10 mg PO BEDTIME [facility] Last Admin: 06/01/17 20:06 Dose: 10 mg *Q Meaningful Use (DIS) - VTE *Q VTE Criteria *Q: - Stroke *Q Stroke Criteria *Q: - AMI *Q AMI Criteria *Q:
== END 2017-06-02 17:35 | disposition home or self-care (01) | DRG 201 ==
LOC: JD.ED 10:58 → JD.MS 13:28 → UNDOADMIN 13:28 → JD.MS 14:24
PROVIDERS: ADMIT Surgery; ATTEND Surgery
DX: J95.811 Postprocedural pneumothorax (principal); J44.9 Chronic obstructive pulmonary disease, unspecified; R91.1 Solitary pulmonary nodule; Z86.711 Personal history of pulmonary embolism; K21.9 Gastro-esophageal reflux disease without esophagitis; D64.9 Anemia, unspecified; C61 Malignant neoplasm of prostate; Z87.891 Personal history of nicotine dependence; Z88.1 Allergy status to other antibiotic agents; Z79.82 Long term (current) use of aspirin; Z79.52 Long term (current) use of systemic steroids; Z79.899 Other long term (current) drug therapy
CPT/HCPCS: 32551; 36415; 71010; 71010-26; 80053; 85025; 94640; 94640-76; 94664; 94760; 94761; 96374; 96375; 99285-25; A9270-GY; J1885; J2250; J2405; J3010; J7050

== ENCOUNTER 2018-05-11 23:24 | Emergency (ER) | payer MEDICARE, BC ==
[2018-05-11 23:29] VITALS: BP 105/68
--- NOTE | 2018-05-12 00:46 | EDM.PDOC ---
ED HPI GENERAL MEDICAL PROBLEM - General Chief Complaint: Genitourinary Problem Stated Complaint: [facility] Time Seen by Provider: 05/11/18 23:30 Source of Information: Reports: Patient, Family (, son) History Limitations: Reports: No Limitations - History of Present Illness INITIAL COMMENTS - FREE TEXT/NARRATIVE: The patient has a history of stage IV prostate cancer, with a chronic indwelling urinary catheter since March 2018. He has been on hospice for about one week. He is visited by a hospice nurse. The patient developed a clogged catheter today. He was seen by his hospice nurse , who irrigated the catheter, but it would still not drain. The patient therefore came to the ED with a full bladder. He was tachycardic en route. The patient's PCP is Dr. Diallo Javed. - Related Data Allergies Allergy/AdvReac Type Severity Reaction Status Date / Time ciprofloxacin [From Cipro] Allergy Hives Verified 05/11/18 23:31 Home Meds: Home Meds Albuterol [Proair HFA] 2 puff INH Q4HR PRN 03/24/14 [History] Albuterol [Ventolin HFA] 1 puff INH QID PRN 03/24/14 [History] Fexofenadine [Elodia] 180 mg PO DAILY 03/25/14 [History] Hydrocodone/Acetaminophen [Hydrocodone-Acetaminophen 5-325] 1 each PO Q4H PRN [History] Aspirin 81 mg PO DAILY 05/30/17 [History] Bifidobacterium Infantis [Align] 4 mg PO DAILY PRN 05/30/17 [History] Budesonide [Pulmicort] 0.5 mg IH BID 05/30/17 [History] Budesonide/Formoterol [Symbicort 160-4.5 MCG] 2 puff INH BID 05/30/17 [History] Calcium Carbonate [Calcium] 1 tab PO DAILY 05/30/17 [History] Guaifenesin/Pseudoephedrne HCl [Mucinex D ER Tablet] 1 each PO DAILY 05/30/17 [ History] Methylcellulose (with Sugar) [Citrucel] 1 dose PO WEEKLY PRN 05/30/17 [History] Omeprazole 40 mg PO DAILY PRN 05/30/17 [History] Ranitidine [Zantac] 300 mg PO BID 05/30/17 [History] Zolpidem [Ambien] 10 mg PO BEDTIME PRN 05/30/17 [History] Past Medical History HEENT History: Reports: Cataract, Hard of Hearing, Impaired Vision Respiratory History: Reports: Asthma, PE Gastrointestinal History: Reports: GERD Genitourinary History: Reports: Acute Renal Failure Hematologic History: Reports: Anemia Oncologic (Cancer) History: Reports: Prostate (Stage IV) - Past Surgical History HEENT Surgical History: Reports: Cataract Surgery, Tonsillectomy Respiratory Surgical History: Reports: Lung Biopsies GI Surgical History: Reports: Other (See Below) (Bowel resection) Oncologic Surgical History: Reports: Other (See Below) (Prostate bx) Social & Family History - Family History Family Medical History: Noncontributory - Tobacco Use Smoking Status *Q: Former Smoker Used Tobacco, but Quit: Yes Month/Year Tobacco Last Used: 09/2007 - Caffeine Use Caffeine Use: Reports: Coffee, Soda - Recreational Drug Use Recreational Drug Use: No - Living Situation & Occupation Living situation: Reports: , with Spouse Occupation: Disabled ED ROS GENERAL - Review of Systems Review Of Systems: ROS reveals no pertinent complaints other than HPI. ED EXAM, RENAL/ - Physical Exam Exam: See Below Exam Limited By: No Limitations General Appearance: Alert, No Apparent Distress Eye Exam: Bilateral Eye: EOMI, Normal Inspection Ears: Normal External Exam Nose: Normal Inspection Throat/Mouth: Normal Inspection, Normal Lips, Normal Voice, No Airway Compromise Head: Atraumatic, Normocephalic Neck: Normal Inspection, Full Range of Motion Respiratory/Chest: No Respiratory Distress, Lungs Clear, Normal Breath Sounds, No Accessory Muscle Use Cardiovascular: Normal Peripheral Pulses, Regular Rate, Rhythm, No Gallop, No JVD, No Murmur, No Rub GI/Abdominal: Normal Bowel Sounds, Soft, Non-Tender (after catheter replaced and irrigated), No Organomegaly, No Distention, No Abnormal Bruit (Male) Exam: Other (Urinary catheter draining bloody urine) Rectal (Males) Exam: Deferred Extremities: Normal Inspection, Normal Range of Motion, Normal Capillary Refill Neurological: Alert, Oriented, Normal Cognition, No Motor/Sensory Deficits Psychiatric: Normal Affect Skin Exam: Warm, Dry, Intact, Normal Color, No Rash Course - Vital Signs Last Recorded V/S: Last Vital Signs Temp 36.4 C 05/11/18 23:25 Pulse 143 H 05/11/18 23:25 Resp 21 H 05/11/18 23:25 BP 105/68 05/11/18 23:25 Pulse Ox 88 L 05/11/18 23:25 - Re-Assessments/Exams Free Text/Narrative Re-Assessment/Exam: 05/12/18 00:41 The patient had a three-way catheter which was clogged. The catheter was exchanged for a new one here in the ED, and irrigated. The drainage is bloody, but the bladder is draining. I will therefore discharge the patient home with the current three-way catheter. Departure - Departure Time of Disposition: 00:42 Disposition: Home, Self-Care 01 Condition: Good Clinical Impression: Blocked urinary catheter, Gross hematuria - Discharge Information *PRESCRIPTION DRUG MONITORING PROGRAM REVIEWED*: Not Applicable *COPY OF PRESCRIPTION DRUG MONITORING REPORT IN PATIENT CARMINE: Not Applicable Referrals: PCP,Not In Area [Primary Care Provider] - Stuart Javed MD [Ordering Only Provider] - Forms: ED Department Discharge Additional Instructions: You were seen in the emergency room for a clogged urinary catheter. The catheter was exchanged for a new one in the ER, and irrigated. While the drainage is bloody, the catheter is now draining urine. Continue [facility] care as previously instructed. If any other problems, please do not hesitate to return to the ER.
== END 2018-05-12 01:09 | disposition home or self-care (01) ==
LOC: JD.ED 23:24
DX: T83.098A Other mechanical complication of other urinary catheter, initial encounter (principal); R31.0 Gross hematuria; J45.909 Unspecified asthma, uncomplicated; K21.9 Gastro-esophageal reflux disease without esophagitis; Z87.891 Personal history of nicotine dependence; Z79.899 Other long term (current) drug therapy; Z88.1 Allergy status to other antibiotic agents
CPT/HCPCS: 51702; 99283; 99284-25